=== PATIENT | male | born 1990 | race Asian ===

== ENCOUNTER 2018-08-01 20:52 | Emergency (ER) | payer BC ==
[~2018-08-01] VITALS: Ht 165.1 cm; Wt 71.7 kg
--- NOTE | 2018-08-01 22:07 | NUR ---
Patient discharged to home in stable conditon. Written and verbal after care instructions given. Patient verbalizes understanding of instructions.
== END 2018-08-01 22:08 | disposition home or self-care (01) ==
LOC: ER 20:56
DX: J02.9 Acute pharyngitis, unspecified (principal); R05 Cough; R53.83 Other fatigue; R50.9 Fever, unspecified; M79.10 Myalgia, unspecified site
CPT/HCPCS: A4663

== ENCOUNTER 2020-10-27 22:07 | Emergency (ER) | payer BC, OTHER ==
[~2020-10-27] VITALS: Ht 167.6 cm; Wt 72.6 kg
--- NOTE | 2020-10-27 22:45 | NUR ---
Patient resting in room, no acute distress noted at this time.
--- NOTE | 2020-10-27 22:56 | NUR ---
veterinary technician instructor in room to draw blood from patient.
[2020-10-27] MEDS ORDERED: OXYCODONE/APAP 5-325 MG TABLET PO ONE (23:00)
[2020-10-27] MEDS ORDERED: OXYCODONE/APAP 5-325 MG TABLET ONE (23:05)
[2020-10-27 23:10] LABS: CREATININE 1.1 mg/dL (0.6-1.3); POTASSIUM 3.5 mmol/L (3.5-5.1)
[2020-10-27 23:17] LABS: BASOPHILS # (AUTO) 0.1 K/uL (0.0-8.0); BASOPHILS % (AUTO) 0.4 % (0.0-2.0); EOSINOPHILS # (AUTO) 0.5 K/uL (0.0-0.7); EOSINOPHILS % (AUTO) 2.7 % (0.0-7.0); HEMATOCRIT 46.9 % (36.7-47.1); HEMOGLOBIN 16.4 g/dL (12.5-16.3); LYMPHOCYTES # (AUTO) 2.5 K/uL (20.0-40.0); LYMPHOCYTES % (AUTO) 13.9 % (20.5-51.5); MEAN CORPUSCULAR HEMOGLOBIN 29.8 uug (23.8-33.4); MEAN CORPUSCULAR HGB CONC 35 g/dL (32.5-36.3); MEAN CORPUSCULAR VOLUME 85.3 fL (73.0-96.2); MONOCYTES # (AUTO) 0.8 K/uL (2.0-10.0); MONOCYTES % (AUTO) 4.3 % (0.0-11.0); NEUTROPHILS # (AUTO) 14.3 K/uL (1.8-8.9); NEUTROPHILS % (AUTO) 78.7 % (38.5-71.5); PLATELET COUNT (AUTO) 239 K/uL (152-348); WHITE BLOOD COUNT (AUTO) 18.1 K/uL (3.6-10.2)
[2020-10-27 23:25] LABS: THYROID STIMULATING HORMONE 1.934 mIU/mL (0.358-3.740)
--- NOTE | 2020-10-28 00:10 | NUR ---
Patient is resting in room comfortably, no acute distress noted at this time.
--- NOTE | 2020-10-28 00:18 | NUR ---
technology teacher arrived in room to take chest XR of patient.
[2020-10-28] MEDS ORDERED: OXYC-117 PO (00:40)
[2020-10-28 01:10] VITALS: BP 123/85
--- NOTE | 2020-10-28 01:10 | NUR ---
Patient discharged to home in stable condition. Written and verbal after care instructions given. Patient verbalizes understanding of instructions. Stressed follow up or return to ER for worsening s/s. Patient ambulates without difficulty, advised to not drive, given rx, and took all belongings with him.
== END 2020-10-28 01:10 | disposition home or self-care (01) ==
LOC: ER 22:08
DX: J20.8 Acute bronchitis due to other specified organisms (principal); Z20.822 Contact with and (suspected) exposure to COVID-19; R73.09 Other abnormal glucose
CPT/HCPCS: 36415; 71045; 84443; 85025; 87400

== ENCOUNTER 2021-02-28 10:40 | Emergency (ER) | payer BC, OTHER ==
[~2021-02-28] VITALS: Ht 167.6 cm; Wt 72.6 kg
[~2021-02-28 10:40] MED LIST: OXYC-117 PO
--- NOTE | 2021-02-28 10:50 | NUR ---
Dr Menon at bedside for MSE.
[2021-02-28] MEDS ORDERED: IBUPROFEN 800 MG TABLET PO ONE (11:00)
[2021-02-28] MEDS ORDERED: IBUPROFEN 800 MG TABLET ONE (11:02)
--- NOTE | 2021-02-28 11:04 | NUR ---
Cleared for DC by ERMD, clear X-rays. Ibuprofen given, no noted adverse effects. Patient discharged to home in stable condition. Written and verbal after care instructions given. Patient verbalizes understanding of instructions. Stressed follow up or return to ER for worsening s/s.
[2021-02-28 11:05] VITALS: BP 110/70
== END 2021-02-28 11:05 | disposition home or self-care (01) ==
LOC: ER 10:40
DX: M79.671 Pain in right foot (principal)
CPT/HCPCS: 73630; A4663

== ENCOUNTER 2021-03-16 15:35 | Emergency (ER) | payer BC, OTHER ==
[~2021-03-16] VITALS: Ht 167.6 cm; Wt 71.2 kg
[2021-03-16] MEDS ORDERED: IBUP-1955 PO (17:52)
--- NOTE | 2021-03-16 18:18 | NUR ---
Patient discharged to home in stable condition. Written and verbal after care instructions given. Patient verbalizes understanding of instructions. Stressed follow up or return to ER for worsening s/s.
== END 2021-03-16 18:18 | disposition home or self-care (01) ==
LOC: ER 15:37
DX: M79.672 Pain in left foot (principal)
CPT/HCPCS: 73630; A4663

== ENCOUNTER 2021-05-08 12:11 | Emergency (ER) | payer BC, OTHER ==
[~2021-05-08] VITALS: Ht 167.6 cm; Wt 71.2 kg
[~2021-05-08 12:11] MED LIST changes: +IBUP-1955 PO
--- NOTE | 2021-05-08 13:40 | NUR ---
PT SAID THAT HE WANTS TO GO HOME, CANNOT WAIT ANY LONGER. Addendum: 05/08/21 at 1359 by SYLVIA Patient discharged to home in stable condition. Written and verbal after care instructions given. Patient verbalizes understanding of instructions. Stressed follow up or return to ER for worsening s/s.TOLD PT THAT HE WILL RECIEVE A CALL IF THE STREP THROAT IS POSITIVE.
== END 2021-05-08 13:40 | disposition home or self-care (01) ==
LOC: ER 12:11
DX: H66.90 Otitis media, unspecified, unspecified ear (principal); Z20.822 Contact with and (suspected) exposure to COVID-19
CPT/HCPCS: 86403; 87070; A4663